=== PATIENT | male | born 1990 | race Caucasian/White ===

== ENCOUNTER 2017-12-10 06:45 | Inpatient (IN) | payer BC ==
[~2017-12-10] VITALS: Ht 172.7 cm; Wt 104.3 kg
[~2017-12-10 06:45] MED LIST: HYDROCODON-ACE1 EACH PO; KEFLEX500 MG PO; NOHOMEMEDICATIONS; NORCO 5-325 TA1 EAC1 PO; NORCO 5-325 TA1 EACH PO; PERCOCET 5-3251 EACH PO; PHENERGAN 25 MG25 M1 PO; TAMSULOSIN HCL0.4 M1 PO; TAMSULOSIN HCL0.4 MG PO; TORADOL 10 MG T10 MG PO; ZOFRAN ODT4 MG PO
[2017-12-10 06:54] VITALS: BP 145/80
[2017-12-10 07:29] LABS: URINE BILIRUBIN NEGATIVE (Negative); URINE BLOOD 3+ (Negative); URINE CLARITY CLEAR; URINE COLOR YELLOW; URINE GLUCOSE-RANDOM NEGATIVE (Negative); URINE KETONES NEGATIVE (Negative); URINE LEUKOCYTES-REFLEX TRACE (Negative); URINE NITRITE-REFLEX NEGATIVE (Negative); URINE PROTEIN NEGATIVE (Negative); URINE SPECIFIC GRAVITY >= 1.030 (1.005-1.030); URINE UROBILINOGEN 0.2 E.U./dl (0.2-1.0)
[2017-12-10 07:33] LABS: CALCIUM 8.7 mg/dL (8.5-10.1); CREATININE 1.1 mg/dL (0.6-1.3); POTASSIUM 3.9 mmol/L (3.5-5.1)
[2017-12-10 07:37] LABS: TOTAL BILIRUBIN 1.5 mg/dL (<0.1-1.0); TOTAL PROTEIN 7.4 g/dL (6.4-8.2)
[2017-12-10 07:39] LABS: BACTERIA-REFLEX 1-9 Few /HPF (None Seen); CASTS None Seen /LPF (None Seen); CRYSTALS None Seen /LPF (None Seen); MUCUS None Seen strn/LPF (None Seen); SQUAMOUS 4-10 Moderate /LPF (0-3); URINE RBC >20 Many /HPF (0-2); URINE WBC-REFLEX 0-5 Rare /HPF (0-5)
[2017-12-10 07:51] LABS: ABSOLUTE EOSINOPHILS 0.1 thou/uL (0.0-0.7); ABSOLUTE LYMPHOCYTES 0.8 thou/uL (0.8-5.3); ABSOLUTE MONOCYTES 0.6 thou/uL (0.0-1.2); BASOPHILS 0.4 %; EOSINOPHILS 1.7 %; HEMATOCRIT 42.8 % (42.0-52.0); HEMOGLOBIN 14.4 gm/dL (14.0-18.0); LYMPHOCYTES 11.7 %; MCH 30.3 pg (26.0-34.0); MCHC 33.7 g/dL (28.0-37.0); MCV 90.1 fL (80.0-100.0); MONOCYTES 8.8 %; MPV 7.8 fl. (7.2-11.1); NUCLEATED RBCS 0 /100WBC; PLATELET COUNT* 196 thou/uL (150-400); POLYS 77.4 %; RBC 4.75 mil/uL (4.50-6.00); RDW-CV 12.7 % (10.5-14.5); WBC 6.4 thou/uL (4.0-11.0)
--- NOTE | 2017-12-10 08:00 | NUR ---
CT ABD /PEL W/O CONTRAST COMPLEATED PT RETUNED TO ED
[2017-12-10 09:45] VITALS: BP 122/64
--- NOTE | 2017-12-10 10:49 | NUR ---
ADMITTED TO ROOM 317, UROLOGY CONSULT IN PROCESS, ORDERS RECEIVED, REVIEWED, IN PROCESS, PAIN CURRENTLY WELL-CONTROLLED WITH IV MEDICATION. ASSESSMENT COMPLETE, NS @ 150/HR, CURRENT DIET IS REG, SHAMA ORAL FLUIDS WELL, NO DISTRESS NOTED, ORIENTED TO ROOM, CARE PLAN REVIEWED WITH PATIENT, DISCHARGE GOALS OF STONE REMOVAL AND PAIN CONTROL REVIEWED, CALL LIGHT IN REACH, CONT POC.
[2017-12-10 16:30] VITALS: BP 115/59
--- NOTE | 2017-12-10 18:42 | NUR ---
SHAMA ORAL FOOD/FLUIDS FAIRLY WELL, ADMIN OF PAIN MEDICATION REQUIRES ADMIN OF NAUSEA MEDICATION. SCHED FOR LITHOTRIPSY TOMORROW @ 0830, CONSENT ON CHART, PATIET AWARE. SHAMA FLUIDS WELL, VOIDING PER URINAL FOR STRAINING PURPOSES. ADMISSION ASSESSMENT COMPLETE, SEE DOCUMENTATION FOR DETAILS. CALL LIGHT IN REACH, CON POC.
[2017-12-10 23:43] VITALS: BP 124/68
[2017-12-11 00:56] VITALS: BP 124/68
--- NOTE | 2017-12-11 05:47 | NUR ---
PT HAS SLEPT FAIRLY WELL OVERNIGHT. RECEIVING IV PAIN AND NAUSEA MED FOR CO L FLANK PAIN WITH GOOD RESULT. TOLERATING REGULAR DIET AT HS AND HAS BEEN NPO SINCE MIDNIGHT FOR CYSTO WITH STENT ETC TODAY. RAC IVF INFUSING PER PUMP. UP AD SUSY IN ROOM. VOIDING DARK YELLOW URINE PER URINAL. URINE STRAINED THIS SHIFT BUT NO STONE RETRIEVED. ABLE TO USE CALL LITE AND MAKE NEEDS KNOWN.
--- NOTE | 2017-12-11 07:51 | NUR ---
PATIENT TO PRE OP @ 0735 THIS AM VIA BED WITH ALL SIDE RAILS UP, SCD'S WITH PATIENT, NO DISTRESS NOTED, BEDSIDE REPORT GIVEN.
[2017-12-11 11:05] VITALS: BP 126/63
--- NOTE | 2017-12-11 11:43 | NUR ---
RESUMED CARE THIS AM, TO PRE OP IN STABLE CONDITION, TOLERATED LITHOTRIPSY AND STENT PLACEMENT WELL, RETURNED TO ROOM @ 1105 IN STABLE CONDITION, ASSESSMENT UNCHANGED, PATIENT IN STABLE CONDITION, DENIES CURRENT PAIN, A/O, NO DISTRESS NOTED, VSS, FAMILY AT BEDSIDE, CHECKED ON FREQUENTLY, CALL LIGHT IN REACH, CONT POC.
[2017-12-11 11:52] LABS: CALCIUM 8.4 mg/dL (8.5-10.1); POTASSIUM 4.5 mmol/L (3.5-5.1)
--- NOTE | 2017-12-11 16:11 | NUR ---
SW met with pt to complete initial assessment, introduce self, and SW role. Pt lives at home with his . Pt hopeful to be able to dc today; anticipating getting to leave [place] today. No dc needs at this time.
[2017-12-11] MEDS ORDERED: CIPRO500 MG PO (16:29)
[2017-12-11] MEDS ORDERED: PHENAZOPYRIDIN200 M2 PO (16:30)
[2017-12-11] MEDS ORDERED: LEVSIN0.125 MG PO (16:32)
[2017-12-11 16:34] VITALS: BP 126/63
--- NOTE | 2017-12-11 18:27 | NUR ---
RESUMED CARE FOR THIS PATIENT THIS AM. SHAMA PROCEDURE WELL, DISCHARGE ORDERS RECEIVED. IV ACCESS REMOVED WITHOUT DIFFICULTY, DISCHARGE INSTRUCTIONS, FOLLOW UP APPOINTMENTS, PRESCRIPTIONS DISCUSSED WITH AND GIVEN TO PATIENT, DENIES QUESTIONS AT THIS TIME. PERSONAL EFFECTS GATHERED, ACCOUNTED FOR, IN COMPANY OF PATIENT, ESCORTED BY STAFF TO MAIN ENTRANCE IN STABLE CONDITION.
--- NOTE | 2017-12-28 13:13 | OP ---
[facility] [address] [place] [address] OPERATIVE REPORT Name: DARLENE GARRETT Room: [address] M.R.#: [id number] Admission: 12/10/17 Attend Phys: Jen Hanson Discharge: 12/11/17 Date of : 86 Report #: [id number] THIS REPORT FOR: //name// CC: Yaz Eubanks DATE OF SERVICE: 12/11/2017 PREOPERATIVE DIAGNOSIS: Obstructing 8 mm left proximal ureteral calculus. POSTOPERATIVE DIAGNOSIS: Obstructing 8 mm left proximal ureteral calculus. PROCEDURES PERFORMED: 1. Cystoscopy with left retrograde pyelogram. 2. Left ureteroscopy with laser lithotripsy. 3. Left 6 x 28 double-J ureteral stent placement. SURGEON: Pavel Hernández MD ANESTHESIA: General endotracheal. BRIEF HISTORY: The patient is a 27-year-old male with a history of nephrolithiasis who presented to the [facility] Emergency Room with acute onset left-sided flank pain. CT imaging demonstrated the presence of an 8 mm obstructing left proximal ureteral calculus. After discussion of available management options, the patient elected ureteroscopy with laser lithotripsy, stone manipulation and stent placement. The risks of the procedure including the risks of bleeding, infection, damage to surrounding structures, inability to approximate stone for retrieval necessitating stent placement for passive dilation, need for additional procedures, and anesthetic risks were discussed with the patient and he wished to proceed. PROCEDURE IN DETAIL: The risks and benefits of surgery were discussed with the patient and he wished to proceed. Informed consent was obtained and the patient was transferred to the operating room where he was laid supine on the operating room table. After the induction of adequate general endotracheal anesthesia and the administration of appropriate preoperative antibiotics, the patient's legs were placed in a modified dorsal lithotomy position taking care to pad all pressure points and avoid any hyperextension or hyperflexion of his joints. The patient's genitalia were prepped and draped in the usual sterile fashion. A timeout was then performed to ensure correct patient and procedure. At this time, a 22-Tamazight cystoscope sheath with a 30-degree lens was lubricated and advanced under direct vision and irrigation through the urethra and into the bladder. There were no urethral abnormalities identified. The cystoscope was disarticulated and the bladder was drained. Cystoscopy was performed under direct vision and irrigation with both a 30 degree and 70 [place] [address] OPERATIVE REPORT Name: DARLENE GARRETT Room: [address]#: [id number] Admission: 12/10/17 Attend Phys: Jen Hanson Discharge: 12/11/17 Date of : 86 Report #: [id number] patient's ureteral orifices were found to be in their normal anatomic location. Systematic panendoscopy revealed no gross bladder wall pathology. There were no papillary bladder tumors or suspicious mucosal lesions identified. At this time, a 5-Tamazight Pollack catheter was placed in the patient's left ureteral orifice and a left retrograde pyelogram was performed. Contrast could be seen filling the distal, mid, and proximal left ureter up to a radiopaque filling defect consistent with the stone previously observed on CT imaging. Contrast did progress beyond the stone and filled a moderately hydronephrotic left collecting system. At this time, a 0.038 ZIPwire was advanced through the lumen of the stent and an attempt was made at advancing the wire beyond the stone; however, there was resistance met and the wire would not advance. The straight ZIPwire was exchanged for an angled ZIPwire and similarly the wire could not be advanced beyond the stone. As such, the wire was left in place and the Pollack catheter was removed. A Kumpe catheter was obtained and was advanced over the wire and utilizing the Kumpe catheter, the wire was able to be advanced beyond the stone until it was seen to coil within the left collecting system. The Kumpe catheter and cystoscope were removed. The wire was clamped to the drape as a safety wire. The cystoscope was reinserted and a second ZIPwire was advanced alongside the first, this time without difficulty beyond the calculus and into the left collecting system. The cystoscope was disarticulated and the bladder was drained. Cystoscope was removed. An 05/25 navigator ureteral access sheath was obtained and the 11-Tamazight inner cannula was advanced to low and over the working wire under fluoroscopic guidance into the ureter. The inner cannula was able to be advanced to the proximal ureter, but it was quite tight. As such, the inner cannula was removed and the access sheath was reassembled. The entire access sheath was then advanced over the wire, but resistance was met at advancement near the ureterovesical junction. As such, the decision was made not to place an access sheath but to perform ureteroscopy alone. Flexible ureteroscope was advanced over the working wire and without difficulty at the left proximal ureter where the patient's stone was encountered. The stone moved in a retrograde fashion back into the collecting system. The stone settled in the lower pole ingris. A 0 tip nitinol basket was used to grasp and moved the stone to the upper pole ingris for lithotripsy. The stone was released and a 200 micron laser fiber was advanced through the ureteroscope. Laser lithotripsy was performed on the calculus, fragmenting it into multiple smaller pieces. The popcorn technique was employed in order to generate sand and small particles. After the stone had been adequately fragmented, renoscopy was performed, inspecting each of the patient's calices meticulously. There were no large stone fragments remaining. At this time, the stone fragments of the size amenable for passing the ureteroscope was withdrawn, the length of the ureter from the UPJ towards the UVJ. Prior to withdrawing the ureteroscope entirely, a retrograde pyelogram was repeated demonstrating patency and integrity of the ureter and collecting system and delineating the collecting system for stent placement. The ureteroscope was then withdrawn to the remainder of the ureter to the bladder. There were no basketable stone fragments remaining. At this time, a 6 x 28 double-[place] [address] OPERATIVE REPORT Name: DARLENE GARRETT Room: [address] IN [facility].#: [id number] Admission: 12/10/17 Attend Phys: Jen Hanson Discharge: 12/11/17 Date of : 86 Report #: [id number] advanced over the safety wire and into position using a metal tipped pusher. The wire was withdrawn, deploying the stent. A good coil of the stent was identified within the left renal pelvis under fluoroscopy and a good coil of the stent was identified within the bladder under direct vision with the cystoscope. The cystoscope was disarticulated and the bladder was drained. The cystoscope was removed. The patient's urethra was anesthetized with 2% lidocaine jelly and a B and O suppository was placed per rectum. The patient was returned to supine position, awakened from anesthesia, and transferred to the postoperative care unit in stable condition. The patient tolerated the procedure well. COMPLICATIONS: None. ESTIMATED BLOOD LOSS: Less than 5 mL. IV FLUIDS: Crystalloid. DRAINS: Left 6 x 28 double-J ureteral stent. SPECIMENS: None. FINDINGS: 1. Normal anterior and posterior urethra. 2. No gross bladder wall pathology. 3. Left retrograde pyelogram demonstrating a radiopaque filling defect in the left proximal ureter consistent with the stone previously observed on CT imaging. 4. Left ureteroscopy demonstrating a left proximal ureteral calculus, fragmented with laser lithotripsy. 5. Left 6 x 28 double-J ureteral stent in good position by fluoroscopy and direct vision at the conclusion of the procedure. <ELECTRONICALLY SIGNED> By: Pavel Hernández MD 12/28/17 1313 1005 [id number] Hernández MD /nt
== END 2017-12-11 17:06 | disposition home or self-care (01) | DRG 669 ==
LOC: M.ERS 06:45 → M.3W 08:28 → M.TBA-ER 08:28 → M.3W 09:54
PROVIDERS: Emergency Medicine; ADMIT Internal Medicine
PROC: 0TC78ZZ Extirpation of Matter from Left Ureter, Via Natural or Artificial Opening Endoscopic (ICD-10-PCS; principal; 2017-12-11)
PROC: BT1F1ZZ Fluoroscopy of Left Kidney, Ureter and Bladder using Low Osmolar Contrast (ICD-10-PCS; principal; 2017-12-11)
PROC: 0T778DZ Dilation of Left Ureter with Intraluminal Device, Via Natural or Artificial Opening Endoscopic (ICD-10-PCS; principal; 2017-12-11)
DX: N13.2 Hydronephrosis with renal and ureteral calculous obstruction (principal); N28.9 Disorder of kidney and ureter, unspecified; Z87.442 Personal history of urinary calculi; Z87.891 Personal history of nicotine dependence; Z80.0 Family history of malignant neoplasm of digestive organs